=== PATIENT | female | born 1975 | race Caucasian/White ===

== ENCOUNTER 2020-06-13 11:05 | Emergency (ER) | payer BC ==
--- NOTE | 2020-06-13 11:12 | PCM.SN.2 ---
#1 Interpretation EKG Date: 06/13/20 Time: 11:04 Rhythm: Other (sinus tachycardia) Rate (Beats/Min): 118 [place]: Normal P-Wave: Present QRS: Normal ST-T: Normal QT: Normal PA/PQ Interval: 151 Comparison: NA - No Prior EKG (Sinus tachycardia without acute ischemic changes)
[2020-06-13] MEDS ORDERED: Sodium Chloride 0.9% 1,000 ML IV ONE (11:31)
--- NOTE | 2020-06-13 11:58 | CR ---
INDICATION: Tachycardia . Comparison: None. TECHNIQUE: Portable AP chest. FINDINGS: Normal size cardiac silhouette . Clear lung balbuena with no evidence of acute pneumonic infiltrates or CHF. No pneumothorax or pleural effusion. IMPRESSION: Negative chest. Dictated by Umu Peres MD @ Jun 13 2020 11:56AM Signed by Dr. Umu Peres @ Jun 13 2020 11:57AM
[2020-06-13] MEDS ORDERED: diphenhydrAMINE 50 MG/ML SDV IVPUSH ONE (12:24)
[2020-06-13] MEDS ORDERED: methylPREDNISolone Sodium Succinate 125 MG/2 ML SDV IVPUSH ONE (12:24)
[2020-06-13 12:27] LABS: BLOOD UREA NITROGEN,BUN 9 mg/dL (7.0-18.0); CARBON DIOXIDE,CO2 27.1 mmol/L (21.0-32.0); CHLORIDE,CL 104 mmol/L (98-107); GLUCOSE RANDOM 119 mg/dL (74-106); SODIUM,NA 139 mmol/L (136-145)
[2020-06-13] MEDS ORDERED: Iopamidol 755 MG/ML 500 ML Multipack Bottle IVPUSH ONE (14:37)
--- NOTE | 2020-06-13 15:11 | CT ---
INDICATION: Chest pain, history of thyroid, cervical, and skin cancer TECHNIQUE: Contrast enhanced axial CT imaging through the chest, optimized for assessment of the pulmonary arterial tree. 100 mL Isovue 370 contrast agent was administered intravenously. Sagittal and coronal reconstructions are provided. COMPARISON: AP chest radiograph 06/13/2020 FINDINGS: There is adequate opacification of the pulmonary arterial tree without evidence of thromboembolism. The main pulmonary artery is nonenlarged. The heart is normal in size. There is no pericardial effusion. There is normal caliber of the thoracic aorta. There is no mediastinal lymphadenopathy. The lungs are clear. There is no pleural effusion or pneumothorax. The thoracic osseous structures are unremarkable. Isodense stones are noted in the gallbladder. There is questionable gallbladder wall thickening. Remainder of the visualized upper abdomen is unremarkable. IMPRESSION: 1. No evidence of pulmonary thromboembolism or other acute intrathoracic process. 2. Cholelithiasis. Questionable gallbladder wall thickening. Further evaluation is recommend with ultrasound. Please note that all CT scans at this facility use dose modulation, iterative reconstruction, and/or weight-based dosing when appropriate to reduce radiation dose to as low as reasonably achievable. Dictated by Roldan Ellis MD @ Jun 13 2020 3:00PM Signed by Dr. Roldan Ellis @ Jun 13 2020 3:10PM
--- NOTE | 2020-06-13 15:18 | EDM.PDOC ---
ED HPI GENERAL MEDICAL PROBLEM - General Chief Complaint: Cardiovascular Problem Stated Complaint: FAST HEART RATE Time Seen by Provider: 06/13/20 11:07 Source of Information: Reports: Patient History Limitations: Reports: No Limitations - History of Present Illness INITIAL COMMENTS - FREE TEXT/NARRATIVE: HISTORY AND PHYSICAL: History of present illness: Patient is a 44-year-old female who presents to the ED today with concern of a fast heart rate. Patient states that she has had issues with a fast heart rate over the past several years and has been monitoring this with her primary care provider, Dr. Daniel. Patient states that she has worn a monitor in the past for her fast heart rate and states that she was told it was likely related to her anxiety. Patient states that she was checking her blood pressure today because she felt like her heart was racing and noted that her heart was going faster than usual so came to the emergency room for further evaluation. Patient denies any other associative symptoms. Patient states she has a history of thyroid cancer so has her thyroid removed and is on thyroid medication. Patient states that she gets her levels checked frequently and has not had any recent medication adjustments. Patient denies fever, chills, chest pain, shortness of breath, or cough. Denies headache, neck stiff ness, change in vision, syncope, or near syncope. Denies nausea, vomiting, abdominal pain, diarrhea, constipation, or dysuria. Has not noted any blood in urine or stool. Patient has been eating and drinking appropriately. Review of systems: As per history of present illness and below otherwise all systems reviewed and negative. Past medical history: As per history of present illness and as reviewed below otherwise noncontribu tory. Surgical history: As per history of present illness and as reviewed below otherwise noncontributory. Social history: See social history for further information Family history: As per history of present illness and as reviewed below otherwise noncontributory. Physical exam: General: Patient is alert, oriented, and in no acute distress. Patient sitting comfortably on exam table, tearful and anxious on exam. HEENT: Atraumatic, normocephalic, pupils equal and reactive bilaterally, negative for conjunctival pallor or scleral icterus, mucous membranes moist, TMs normal bilaterally, throat clear, neck supple, nontender, trachea midline. No drooling or trismus noted. No meningeal signs. No hot potato voice noted. Lungs: Clear to auscultation, breath sounds equal bilaterally, chest nontender. Heart: S1S2, regular rate and rhythm without overt murmur Abdomen: Soft, nondistended, nontender, negative hernandez sign. Negative for masses or hepatosplenomegaly. Negative for costovertebral tenderness. Pelvis: Stable nontender. Genitourinary: Deferred. Rectal: Deferred. Skin: Intact, warm, dry. No lesions or rashes noted. Extremities: Atraumatic, negative for cords or calf pain. Neurovascular unremarkable. Neuro: Awake, alert, oriented. Cranial nerves II through XII unremarkable. Cerebellum unremarkable. Motor and sensory unremarkable throughout. Exam nonfocal. Notes: See Dr. Victor documentation for EKG interpretation. On reevaluation of patient, she is no longer tearful or anxious appearing and her heart rate has improved and is now 90 bpm. She remains vitally stable throughout stay in the emergency room. Strict return precautions thoroughly discussed with patient. Discussed importance for follow-up with her primary care provider. Voices understanding and is agreeable to plan of care. Denies any further questions or concerns at this time. Diagnostics: EKG, CBC, CMP, UA, CXR, Trop, Ddimer, serum hcg, Ang CT Therapeutics: NS Prescription: None Impression: Sinus tachycardia, resolved Hyperthyroid Plan: 1. Follow up with a primary care provider as discussed. Return to the ED as needed and as discussed. Definitive disposition and diagnosis as appropriate pending reevaluation and review of above. - Related Data Allergies Allergy/AdvReac Type Severity Reaction Status Date / Time iodine Allergy Other Verified 06/13/20 11:27 Home Meds: Home Meds Levothyroxine [Synthroid] 175 mcg PO DAILY 06/13/20 [History] Metoprolol Succinate 25 mg PO DAILY 06/13/20 [History] Past Medical History Cardiovascular History: Reports: Hypertension Psychiatric History: Reports: Anxiety, Depression, PTSD - Infectious Disease History Infectious Disease History: Reports: Chicken Pox, Shingles - Past Surgical History Endocrine Surgical History: Reports: Thyroidectomy Social & Family History - Tobacco Use Tobacco Use Status *Q: Never Tobacco User - Recreational Drug Use Recreational Drug Use: Yes Recreational Drug Type: Reports: Marijuana/Hashish ED ROS GENERAL - Review of Systems Review Of Systems: Comprehensive ROS is negative, except as noted in HPI. ED EXAM, GENERAL - Physical Exam Exam: See Below (see dictation) Course - Vital Signs Last Recorded V/S: Last Vital Signs Temp 96.9 F 06/13/20 11:22 Pulse 84 06/13/20 13:09 Resp 16 06/13/20 13:03 BP 148/107 H 06/13/20 13:09 Pulse Ox 96 06/13/20 13:09 - Orders/Labs/Meds Orders: Active Orders 24 hr Category Date Time Status Cardiac Monitoring [RC] . DIRECTED Care 06/13/20 11:31 Active EKG Documentation Completion [RC] STAT Care 06/13/20 11:33 Active UA RFX LENCHO AND CULT IF INDIC [URIN] Stat Lab 06/13/20 12:56 Ordered Labs: Laboratory Tests 06/13/20 06/13/20 06/13/20 Range/Units 11:39 11:39 11:39 WBC (4.0-11.0) K/uL RBC (4.30-5.90) M/uL Hgb (12.0-16.0) g/dL Hct (36.0-46.0) % MCV (80.0-98.0) fL MCH (27.0-32.0) pg MCHC (31.0-37.0) g/dL RDW Std Deviation (28.0-62.0) fl RDW Coeff of Lukas (11.0-15.0) % Plt Count (150-400) K/uL MPV (7.40-12.00) fL Neut % (Auto) (48.0-80.0) % Lymph % (Auto) (16.0-40.0) % Crowley % (Auto) (0.0-15.0) % Eos % (Auto) (0.0-7.0) % Baso % (Auto) (0.0-1.5) % Neut # (Auto) (1.4-5.7) K/uL Lymph # (Auto) (0.6-2.4) K/uL Crowley # (Auto) (0.0-0.8) K/uL Eos # (Auto) (0.0-0.7) K/uL Baso # (Auto) (0.0-0.1) K/uL Nucleated RBC % /100WBC Nucleated RBCs # K/uL D-Dimer, Quantitative 0.57 H (0.0-0.50) mg/L FEU Sodium 139 (136-145) mmol/L Potassium 4.0 (3.5-5.1) mmol/L Chloride 104 (98-107) mmol/L Carbon Dioxide 27.1 (21.0-32.0) mmol/L BUN 9 (7.0-18.0) mg/dL Creatinine 1.1 H (0.6-1.0) mg/dL Est Cr Clr Drug Dosing 57.53 mL/min Estimated GFR (MDRD) 54.5 ml/min Glucose 119 H (74-106) mg/dL Calcium 9.2 (8.5-10.1) mg/dL Total Bilirubin 0.3 (0.2-1.0) mg/dL AST 13 L (15-37) IU/L ALT 25 (14-63) IU/L Alkaline Phosphatase 71 (46-116) U/L Troponin I < 0.050 (0.000-0.056) ng/mL Total Protein 7.8 (6.4-8.2) g/dL Albumin 4.0 (3.4-5.0) g/dL Globulin 3.8 (2.6-4.0) g/dL Albumin/Globulin Ratio 1.1 (0.9-1.6) TSH 3rd Generation 0.06 L (0.36-3.74) uIU/mL HCG, Qual NEGATIVE (NEG) 06/13/20 Range/Units 11:57 WBC 7.03 (4.0-11.0) K/uL RBC 4.57 (4.30-5.90) M/uL Hgb 13.4 (12.0-16.0) g/dL Hct 40.6 (36.0-46.0) % MCV 88.8 (80.0-98.0) fL MCH 29.3 (27.0-32.0) pg MCHC 33.0 (31.0-37.0) g/dL RDW Std Deviation 42.0 (28.0-62.0) fl RDW Coeff of Lukas 13 (11.0-15.0) % Plt Count 298 (150-400) K/uL MPV 10.10 (7.40-12.00) fL Neut % (Auto) 58.1 (48.0-80.0) % Lymph % (Auto) 32.9 (16.0-40.0) % Crowley % (Auto) 8.0 (0.0-15.0) % Eos % (Auto) 0.9 (0.0-7.0) % Baso % (Auto) 0.1 (0.0-1.5) % Neut # (Auto) 4.1 (1.4-5.7) K/uL Lymph # (Auto) 2.3 (0.6-2.4) K/uL Crowley # (Auto) 0.6 (0.0-0.8) K/uL Eos # (Auto) 0.1 (0.0-0.7) K/uL Baso # (Auto) 0.0 (0.0-0.1) K/uL Nucleated RBC % 0.0 /100WBC Nucleated RBCs # 0 K/uL D-Dimer, Quantitative (0.0-0.50) mg/L FEU Sodium (136-145) mmol/L Potassium (3.5-5.1) mmol/L Chloride (98-107) mmol/L Carbon Dioxide (21.0-32.0) mmol/L BUN (7.0-18.0) mg/dL Creatinine (0.6-1.0) mg/dL Est Cr Clr Drug Dosing mL/min Estimated GFR (MDRD) ml/min Glucose (74-106) mg/dL Calcium (8.5-10.1) mg/dL Total Bilirubin (0.2-1.0) mg/dL AST (15-37) IU/L ALT (14-63) IU/L Alkaline Phosphatase (46-116) U/L Troponin I (0.000-0.056) ng/mL Total Protein (6.4-8.2) g/dL Albumin (3.4-5.0) g/dL Globulin (2.6-4.0) g/dL Albumin/Globulin Ratio (0.9-1.6) TSH 3rd Generation (0.36-3.74) uIU/mL HCG, Qual (NEG) Meds: Medications Discontinued Medications Generic Name Dose Route Start Last Admin Trade Name Freq PRN Reason Stop Dose Admin Diphenhydramine HCl 50 mg 06/13/20 12:24 06/13/20 13:03 Benadryl IVPUSH 06/13/20 12:25 50 mg ONETIME ONE Administration Sodium Chloride 1,000 mls @ 999 mls/hr 06/13/20 11:31 06/13/20 11:35 Normal Saline IV 06/13/20 12:31 999 mls/hr BOLUS ONE Administration Iopamidol 100 ml 06/13/20 14:37 06/13/20 14:37 Isovue Multipack-370 (76%) IVPUSH 06/13/20 14:38 100 ml ONETIME ONE Administration Methylprednisolone Sodium Succinate 125 mg 06/13/20 12:24 06/13/20 13:03 Solu-Medrol IVPUSH 06/13/20 12:25 125 mg ONETIME ONE Administration Departure - Departure Time of Disposition: 15:17 Disposition: Home, Self-Care 01 Clinical Impression: Sinus tachycardia, Hyperthyroidism - Discharge Information Referrals: Christofer Pierce DO [Primary Care Provider] - Forms: ED Department Discharge Additional Instructions: The following information is given to patients seen in the emergency department who are being discharged to home. This information is to outline your options for follow-up care. We provide all patients seen in our emergency department with a follow-up referral. The need for follow-up, as well as the timing and circumstances, are variable depending upon the specifics of your emergency department visit. If you don't have a primary care physician on staff, we will provide you with a referral. We always advise you to contact your personal physician following an emergency department visit to inform them of the circumstance of the visit and for follow-up with them and/or the need for any referrals to a consulting specialist. The emergency department will also refer you to a specialist when appropriate. This referral assures that you have the opportunity for follow-up care with a specialist. All of these measure are taken in an effort to provide you with optimal care, which includes your follow-up. Under all circumstances we always encourage you to contact your private physician who remains a resource for coordinating your care. When calling for follow-up care, please make the office aware that this follow-up is from your recent emergency room visit. If for any reason you are refused follow-up, please contact the [facility] Emergency Department at and asked to speak to the emergency department charge nurse. [facility] [address] [place] [address] [facility] [address] [place] [address] 1. Follow up with a primary care provider as discussed. Return to the ED as needed and as discussed. Sepsis Event Note (ED) - Evaluation Sepsis Screening Result: No Definite Risk - Focused Exam Vital Signs: Vital Signs Temp Pulse Resp BP Pulse Ox 06/13/20 13:09 84 148/107 H 96 06/13/20 13:03 88 16 160/106 H 98 06/13/20 12:40 82 147/90 H 98 06/13/20 12:10 93 141/92 H 99 06/13/20 11:22 96.9 F 130 H 16 171/91 H 98 - My Orders Last 24 Hours: My Active Orders 06/13/20 11:31 Cardiac Monitoring [RC] . DIRECTED 06/13/20 11:33 EKG Documentation Completion [RC] STAT 06/13/20 12:56 UA RFX LENCHO AND CULT IF INDIC [URIN] Stat - Assessment/Plan Last 24 Hours: My Active Orders 06/13/20 11:31 Cardiac Monitoring [RC] . DIRECTED 06/13/20 11:33 EKG Documentation Completion [RC] STAT 06/13/20 12:56 UA RFX LENCHO AND CULT IF INDIC [URIN] Stat
== END 2020-06-13 16:03 | disposition home or self-care (01) ==
LOC: MW.ED 11:05
DX: E05.90 Thyrotoxicosis, unspecified without thyrotoxic crisis or storm (principal); I10 Essential (primary) hypertension; Z91.048 Other nonmedicinal substance allergy status; Z79.899 Other long term (current) drug therapy
CPT/HCPCS: 36415; 71045; 71275; 80053; 81003; 84443; 84484; 84703; 85025; 85379; 93005; 96374; 96375; 99285; J1200; J2930; J7030; Q9967; 93010; 99283

== ENCOUNTER 2020-06-20 08:05 | Day surgery (SDC) | payer BC ==
[~2020-06-20 08:05] MED LIST: Bupivacaine 25%/EPINEPHrine/PF 30 ML ONE; Dexamethasone 4 MG/ML 5 ML MDV ONE; Glycopyrrolate 0.2 MG/ML SDV ONE; Ketorolac 30 MG/ML SDV ONE; Lactated Ringers 1,000 ML IV SCH; Midazolam 1 MG/ML 2 ML SDV ONE; Morphine 10 MG/ML Syringe ONE; Octyl 2-Cyanoacrylate 1 Tube ONE; Ondansetron 4 MG/2 ML SDV ONE; Propofol 200 MG/20 ML SDV ONE; Rocuronium Bromide 50 MG/5 ML Syringe ONE; Sugammadex Sodium 200 MG/2 ML VIAL ONE; ceFAZolin 2 GM in Premix Bag 1 BAG IV ONE; fentaNYL 100 MCG/2 ML SDV ONE
--- NOTE | 2020-06-20 09:21 | PCM.PREANE ---
Preanesthetic Assessment - Anesthesia/Transfusion/Family Hx Anesthesia History: Prior Anesthesia Without Reaction Family History of Anesthesia Reaction: No Transfusion History: No Prior Transfusion(s) - Review of Systems General: No Symptoms Pulmonary: No Symptoms Cardiovascular: No Symptoms Gastrointestinal: No Symptoms Neurological: No Symptoms Other: Reports: None - Physical Assessment NPO Status Date: 06/19/20 Vital Signs: Last Vital Signs Temp 97.2 F 06/20/20 08:22 Pulse 68 06/20/20 08:22 Resp 16 06/20/20 08:22 BP 134/86 06/20/20 08:22 Pulse Ox 98 06/20/20 08:22 Height: 5 ft 4 in Weight: 102.058 kg ASA Class: 2 Mental Status: Alert & Oriented x3 Airway Class: Mallampati = 2 Dentition: Reports: Normal Dentition ROM/Head Extension: Full Lungs: Clear to Auscultation, Normal Respiratory Effort Cardiovascular: Regular Rate, Regular Rhythm - Lab Values: Laboratory Last Values Urine HCG, Qual NEGATIVE (NEGATIVE) 06/20/20 08:20 - Allergies Allergies/Adverse Reactions: Allergies Allergy/AdvReac Type Severity Reaction Status Date / Time iodine Allergy Hives Verified 06/20/20 08:26 - Blood Blood Available: No - Anesthesia Plan Pre-Op Medication Ordered: None - Acknowledgements Anesthesia Type Planned: General Anesthesia Pt an Appropriate Candidate for the Planned Anesthesia: Yes Alternatives and Risks of Anesthesia Discussed w Pt/Guardian: Yes Pt/Guardian Understands and Agrees with Anesthesia Plan: Yes PreAnesthesia Questionnaire HEENT History: Reports: None Cardiovascular History: Reports: Hypertension Respiratory History: Reports: Asthma Gastrointestinal History: Reports: GERD Genitourinary History: Reports: Renal Calculus DOCUMENTATION COORDINATOR History: Reports: , Spontaneous Musculoskeletal History: Reports: Arthritis, Fracture Other Musculoskeletal History: hx fx left arm Neurological History: Reports: None Psychiatric History: Reports: Anxiety, Bipolar, Depression, PTSD Other Psychiatric History: smokes marijuana daily for anxiety Endocrine/Metabolic History: Reports: Hypothyroidism, Obesity/BMI 30+ Hematologic History: Reports: None Immunologic History: Reports: None Oncologic (Cancer) History: Reports: Malignant Melanoma, Thyroid Dermatologic History: Reports: Melanoma - Infectious Disease History Infectious Disease History: Reports: Chicken Pox, Shingles - Past Surgical History Head Surgeries/Procedures: Reports: None HEENT Surgical History: Reports: Tonsillectomy Cardiovascular Surgical History: Reports: None Respiratory Surgical History: Reports: None GI Surgical History: Reports: None Female Surgical History: Reports: Section, D&C, Other (See Below) Other Female Surgeries/Procedures: hx of ureteroscopy with stent placement Endocrine Surgical History: Reports: Thyroidectomy, Other (See Below) Other Endocrine Surgeries/Procedures: thyroidectomy for thyroid cancer Neurological Surgical History: Reports: None Musculoskeletal Surgical History: Reports: Other (See Below) Other Musculoskeletal Surgeries/Procedures:: "left foot detached and reattached" Oncologic Surgical History: Reports: Other (See Below) Other Oncologic Surgeries/Procedures: melanoma removed from groin, chest & back, total thyroidectomy for thyroid cancer Dermatological Surgical History: Reports: Skin Biopsy - SUBSTANCE USE Tobacco Use Status *Q: Never Tobacco User Recreational Drug Type: Reports: Marijuana/Hashish Recreational Drug Last Use: 06/17/20 - HOME MEDS Home Medications: Home Meds Metoprolol Succinate 25 mg PO DAILY 06/13/20 [History] Albuterol Sulfate [Albuterol Sulfate HFA] 1 - 2 puff INH ASDIRECTED PRN 06/18/20 [History] Levothyroxine Sodium [Synthroid] 200 mcg PO DAILY 06/18/20 [History] - CURRENT (IN HOUSE) MEDS Current Meds: Current Medications Lactated Ringer's (Ringers, Lactated) 1,000 mls @ 125 mls/hr IV ASDIRECTED BARTOLO Last Admin: 06/20/20 08:26 Dose: 125 mls/hr Documented by: Discontinued Medications Dexamethasone (Dexamethasone) Confirm Administered Dose 20 mg .ROUTE .STK-MED ONE Stop: 06/20/20 07:03 Fentanyl (Sublimaze) Confirm Administered Dose 200 mcg .ROUTE .STK-MED ONE Stop: 06/20/20 07:03 Glycopyrrolate (Robinul) Confirm Administered Dose 0.2 mg .ROUTE .STK-MED ONE Stop: 06/20/20 07:03 Cefazolin Sodium/Dextrose 2 gm (/ Premix) 50 mls @ 100 mls/hr IV ONETIME ONE Stop: 06/20/20 05:29 Acetaminophen (Ofirmev 1000 Mg/100 Ml) Confirm Administered Dose 100 mls @ as directed .ROUTE .STK-MED ONE Stop: 06/20/20 07:07 Bupivacaine HCl/Epinephrine Bitart (Sensorc Mpf 0.25%-Epi [id number]) Confirm Administered Dose 30 mls @ as directed .ROUTE .STK-MED ONE Stop: 06/20/20 07:20 Ketorolac Tromethamine (Toradol) Confirm Administered Dose 30 mg .ROUTE .STK-MED ONE Stop: 06/20/20 07:03 Midazolam HCl (Versed 1 Mg/Ml) Confirm Administered Dose 2 mg .ROUTE .STK-MED ONE Stop: 06/20/20 07:03 Morphine Sulfate (Morphine) Confirm Administered Dose 10 mg .ROUTE .STK-MED ONE Stop: 06/20/20 07:05 Octyl Cyanoacrylate (Dermabond Advance) Confirm Administered Dose 1 applic .ROUTE .ST-MED ONE Stop: 06/20/20 07:20 Ondansetron HCl (Zofran) Confirm Administered Dose 4 mg .ROUTE .STK-MED ONE Stop: 06/20/20 07:03 Propofol (Diprivan 20 Ml) Confirm Administered Dose 600 mg .ROUTE .STK-MED ONE Stop: 06/20/20 07:03 Rocuronium Winchester (Rocuronium Winchester) Confirm Administered Dose 100 mg .ROUTE .STK-MED ONE Stop: 06/20/20 07:03 Sugammadex Sodium (Bridion) Confirm Administered Dose 200 mg .ROUTE .STK-MED ONE Stop: 06/20/20 07:07
[2020-06-20] MEDS ORDERED: fentaNYL 100 MCG/2 ML SDV ONE ×2 (10:02→10:13)
[2020-06-20] MEDS ORDERED: Morphine 4 MG/ML Syringe IVPUSH SCH (10:09)
[2020-06-20] MEDS ORDERED: Propofol 200 MG/20 ML SDV ONE ×2 (10:17→10:45)
[2020-06-20] MEDS ORDERED: HYDROmorphone 2 MG/ML Syringe IVPUSH ONE ×2 (11:33→11:43)
[2020-06-20] MEDS ORDERED: HYDROmorphone 2 MG/ML Syringe ONE (11:33)
--- NOTE | 2020-06-20 11:45 | PCM.OPNOTE ---
- General Post-Op/Procedure Note Date of Surgery/Procedure: 06/20/20 Operative Procedure(s): lap mayito Findings: gb was yellow and green and severely scarred down with omentum cw chronic cholecystitis; wall is not thickened; 2 large 15mm size gall stones; [id number] Pre Op Diagnosis: acute and chronic cholecystitis Post-Op Diagnosis: Same Anesthesia Technique: General ET Tube Primary Surgeon: Rachid Uribe Pathology: sent Complications: None Condition: Good
--- NOTE | 2020-06-20 12:06 | PCM.POSTAN ---
POST ANESTHESIA ASSESSMENT - MENTAL STATUS Mental Status: Alert, Oriented - VITAL SIGNS Vital Signs: Last Vital Signs Temp 97.9 F 06/20/20 11:28 Pulse 80 06/20/20 11:58 Resp 14 06/20/20 11:58 BP 147/89 H 06/20/20 11:58 Pulse Ox 97 06/20/20 11:58 - RESPIRATORY Respiratory Status: Respiratory Rate WNL, Airway Patent, O2 Saturation Stable - CARDIOVASCULAR CV Status: Pulse Rate WNL, Blood Pressure Stable - GASTROINTESTINAL GI Status: No Symptoms - POST OP HYDRATION Hydration Status: Adequate & Stable
[2020-06-20] MEDS ORDERED: Acetaminophen/oxyCODONE 325-5 MG Tab PO PRN ×3 (12:30→12:31)
--- NOTE | 2020-06-20 13:25 | PCM48HPAN ---
Post Anesthesia Note - EVALUATION WITHIN 48HRS OF ANESTHETIC Vital Signs in Normal Range: Yes Patient Participated in Evaluation: Yes Respiratory Function Stable: Yes Airway Patent: Yes Cardiovascular Function Stable: Yes Hydration Status Stable: Yes Pain Control Satisfactory: Yes Nausea and Vomiting Control Satisfactory: Yes Mental Status Recovered: Yes Vital Signs: Last Vital Signs Temp 97.7 F 06/20/20 12:05 Pulse 70 06/20/20 12:50 Resp 16 06/20/20 12:50 BP 190/83 H 06/20/20 12:50 Pulse Ox 96 06/20/20 12:50
--- NOTE | 2020-06-20 22:46 | OR ---
SURGEON: Rachid Uribe MD DATE OF PROCEDURE: 06/20/2020 PREOPERATIVE DIAGNOSIS: Acute on chronic cholecystitis. POSTOPERATIVE DIAGNOSIS: Acute on chronic cholecystitis. PROCEDURE PROPOSED: Laparoscopic cholecystectomy. PROCEDURE PERFORMED: Laparoscopic cholecystectomy. PRIMARY SURGEON: Rachid Uribe MD COMPLICATIONS: None. Finding: Gallbladder was distended, yellow and green, severe adherence to omentum cw chronic and actue cholecystitis; wall was not thickened; 2 large 15 mm+ gallstones; a piece of surgicell was placed for hemostasis at end of surgery; PROCEDURE NOTE: The patient was taken to the operating room and placed in the supine position. After the intubation of general endotracheal anesthesia, the patient's abdomen was prepped and draped in the usual sterile fashion. Using Naartjie, a 12 mm trocar was placed supraumbilically and then followed with pneumoperitoneum. A 5 mm trocar was placed in the epigastrium and two 5 mm trocars placed in the right upper quadrant. The placement of the last three trocars was done under direct video supervision. Upon gaining entrance to the abdominal cavity, an extensive examination was then performed. The gallbladder was located and identified and retracted to the dome of the liver at the triangle of Calot. The cystic duct was clipped three more times and then using the endoscopic clip, was transected with placement of the endoscopic clip and transection was performed with care, ensuring the posterior prong of the instruments were clearly visualized prior to exercising the procedure. The gallbladder was dissected using electrocautery out of the liver bed and then removed using endoscopic bag through the umbilical site. The gallbladder was removed en bloc and there was no bile spillage and this was then followed with extensive irrigation until the bile was clear from blood and bile. After the gallbladder was removed and hemostasis achieved, a piece of Surgicel was inserted lining up the gallbladder bed. The trocars were then removed under direct video supervision. The 12 mm umbilical site was then closed with deep stitches using 0 Vicryl followed with proximal stitches using 3-0 Vicryl and Dermabond. The other three trocar sites were closed with 3-0 Vicryl followed with approximation of skin with Dermabond. The patient was then awakened and extubated and transferred to the recovery room in hemodynamically stable condition. At the conclusion of the surgery, before closing the abdominal wound, instrument count and sponge count were done and were correct. The patient tolerated the procedure well and there were no intraoperative complications. Dr. Uribe was present through the whole procedure. Just before surgery, a timeout was called. The patient was identified and procedure identified and procedure started. At the end of surgery a piece of Surgicel was inserted for hemostasis. SHAWNA ASHBY /[id number]
== END 2020-06-20 13:53 | disposition home or self-care (01) ==
LOC: MW.SDS 08:05
PROVIDERS: ATTEND Surgery
DX: K80.12 Calculus of gallbladder with acute and chronic cholecystitis without obstruction (principal); E03.9 Hypothyroidism, unspecified; E66.9 Obesity, unspecified; J45.909 Unspecified asthma, uncomplicated; Z68.38 Body mass index [BMI] 38.0-38.9, adult; Z88.8 Allergy status to other drugs, medicaments and biological substances; Z79.899 Other long term (current) drug therapy; Z98.890 Other specified postprocedural states; Z87.891 Personal history of nicotine dependence
CPT/HCPCS: 47562; 81025; 88304; A9270; J0131; J1100; J1170; J2250; J2270; J2405; J2704; J3010; J3490; J7120; 00790; J1885